=== PATIENT | female | born 1945 | race African-American/Black ===

== ENCOUNTER 2021-09-28 01:38 | Emergency (ER) | payer OTHER, MEDICAID ==
[~2021-09-28] VITALS: Ht 157.5 cm; Wt 46.0 kg
[~2021-09-28 01:38] MED LIST: HYDR-4001 MT
[2021-09-28] MEDS ORDERED: HYDROCODONE/ACETAMINOPHEN 5/325MG TABLET PO STA (02:10)
[2021-09-28 03:08] VITALS: BP 138/51
[2021-09-28 03:11] LABS: HEMOGLOBIN. 8.6 g/dL (12.0-16.0); MEAN CORPUSCULAR HEMOGLOBIN 27.2 pg (28.0-32.0); MEAN CORPUSCULAR VOLUME 82.6 fL (81.0-99.0); MEAN PLATELET VOLUME 10.7 fl (7.4-10.4); PLATELET 104 x1000/uL (130-400); RED BLOOD CELL COUNT 3.15 mill/uL (4.2-5.4); RED CELL DISTRIBUTION WIDTH 15.3 % (11.6-14.6)
[2021-09-28 03:19] LABS: INR 1.2; PROTHROMBIN TIME 12.4 sec (9.6-11.0)
[2021-09-28 04:21] LABS: CHLORIDE 113 mEq/L (98-107)
[2021-09-28] MEDS ORDERED: FUROSEMIDE 100MG/10ML VIAL IV NR (04:44)
[2021-09-28] MEDS ORDERED: SODIUM BICARBONATE 8.4% 1 MEQ/ML 50ML SYR IV NR (04:45)
[2021-09-28] MEDS ORDERED: DEXTROSE 50% WATER 50ML SYRINGE IV NR (04:45)
[2021-09-28] MEDS ORDERED: ALBUTEROL (0.083%) 2.5MG/3ML NEB HHN NR (04:45)
[2021-09-28] MEDS ORDERED: INSULIN REGULAR (HUMULIN R) 300UNITS/3ML VIAL IV NR (04:45)
[2021-09-28] MEDS ORDERED: CALCIUM CHLORIDE 1GM/10ML SYR IV NR (04:45)
[2021-09-28 05:29] LABS: PLATELET ESTIMATE DECREASED
== END 2021-09-28 07:24 | disposition left against medical advice (07) ==
LOC: ER 01:50 → CANBEDREQ 08:08
DX: R10.9 Unspecified abdominal pain (principal); R18.8 Other ascites; E87.5 Hyperkalemia; K72.10 Chronic hepatic failure without coma; F41.9 Anxiety disorder, unspecified; I10 Essential (primary) hypertension; I25.2 Old myocardial infarction
CPT/HCPCS: 36415; 71045; 80053; 84484; 85025; 99284

== ENCOUNTER 2023-11-26 08:58 | Inpatient (IN) | payer BC, MEDICAID, MEDICARE ==
[~2023-11-26] VITALS: Ht 165.1 cm; Wt 72.6 kg
[2023-11-26] VITALS (13 sets, daily range): BP systolic 138–174; BP diastolic 71–89; PULSE 74–99; RESP 16–18; TEMP 35.72508–36.6404; O2SAT 99–100
[2023-11-26 09:58] LABS: BASOPHILS % 1.2 % (0.0-2.0); DIFFERENTIAL COMMENT 0; EOSINOPHILS % 2.8 % (0.0-5.0); HEMATOCRIT. 37.3 % (36.0-48.0); HEMOGLOBIN. 11.5 g/dL (12.0-16.0); LYMPHOCYTES % 8.2 % (20.0-50.0); MEAN CORPUSCULAR HEMOGLOBIN 25.4 pg (28.0-32.0); MEAN CORPUSCULAR HGB CONC 30.7 g/dL (31.0-37.0); MEAN CORPUSCULAR VOLUME 82.6 fL (81.0-99.0); MEAN PLATELET VOLUME 10.2 fl (7.4-10.4); MONOCYTES % 6.8 % (2.0-8.0); PLATELET 86 x1000/uL (130-400); RED BLOOD CELL COUNT 4.52 mill/uL (4.2-5.4); RED CELL DISTRIBUTION WIDTH 17.3 % (11.6-14.6); WHITE BLOOD COUNT 3.2 x1000/uL (4.5-11.0)
[2023-11-26 10:02] LABS: CHLORIDE 96 mEq/L (98-107); POTASSIUM 4.3 mEq/L (3.5-5.1); SODIUM 129 mEq/L (136-145)
[2023-11-26 10:03] LABS: CALCIUM 7.3 mg/dL (8.7-10.4); CARBON DIOXIDE 24 mEq/L (21-32)
[2023-11-26 10:08] LABS: GLUCOSE 106 mg/dL (70-105); UREA NITROGEN BLOOD 30 mg/dL (9-23)
[2023-11-26 10:11] LABS: CREATININE 6.3 mg/dL (0.6-1.0); TROPONIN I HIGH SENSITIVITY 56 ng/L (3.0-34)
[2023-11-26] MEDS ORDERED: LIDOCAINE HCL 1% 10 MG/ML 10ML VIAL ONE (10:26)
[2023-11-26 14:21] LABS: HEPATITIS B SURFACE ANTIGEN NEGATIVE (Negative)
[2023-11-26 14:42] LABS: HEPATITIS A AB IGM NEGATIVE (Negative); HEPATITIS B CORE AB IGM NEGATIVE (Negative)
[2023-11-26 14:43] LABS: HEPATITIS C AB REACTIVE (Pos) (Negative)
[2023-11-26] MEDS: ONDANSETRON HCL 4MG/2ML INJ IV PRN (14:57)
[2023-11-26] MEDS ORDERED: HYDROCODONE/ACETAMINOPHEN 5/325MG TABLET PO PRN (15:00)
[2023-11-26] MEDS ORDERED: ACETAMINOPHEN 325MG TABLET PO PRN (15:00)
[2023-11-26] MEDS ORDERED: MORPHINE SULFATE 2 MG/ML INJ (NOT FOR IM USE) IV PRN (15:00)
[2023-11-26] MEDS ORDERED: ENOXAPARIN 40MG/0.4ML SYR SUBCUT SCH (15:00)
[2023-11-26] MEDS ORDERED: NALOXONE HCL 0.4MG/ML VIAL IV PRN (15:00)
[2023-11-26] MEDS ORDERED: IPRATROPIUM/ALBUTEROL 0.5-3(2.5)MG/3ML NEB HHN PRN (15:00)
[2023-11-26 15:10] LABS: TROPONIN I HIGH SENSITIVITY 271 ng/L (3.0-34)
[2023-11-26] MEDS: CLOPIDOGREL 75MG TABLET PO SCH (16:30)
[2023-11-26] MEDS ORDERED: ASPIRIN 81MG TABLET PO SCH (16:30)
[2023-11-26 16:47] LABS: CREATINE KINASE MB FRACTION 4.2 ng/mL (0.5-3.6)
[2023-11-26] MEDS: ENOXAPARIN 80MG/0.8ML SYR SUBCUT SCH (17:00)
[2023-11-26] MEDS ORDERED: GABA-529 PO (18:23)
[2023-11-26] MEDS ORDERED: SEVE0.8P MT (18:23)
[2023-11-26] MEDS ORDERED: VALS80TA30 MT (18:23)
[2023-11-26] MEDS ORDERED: HYDR25TA78 PO (18:23)
[2023-11-26] MEDS ORDERED: AMLO5TAB88 MT (18:23)
[2023-11-26] MEDS ORDERED: METO25TA6 MT (18:23)
[2023-11-26] MEDS ORDERED: ATORVASTATIN CALCIUM 40MG TABLET PO SCH (21:00)
[2023-11-30 04:08] LABS: HBSAG SCREEN Negative (Negative)
== END 2023-11-26 19:32 | disposition left against medical advice (07) | DRG 280 ==
LOC: ER 09:07 → 8WST 10:19 → EDBEDREQ 10:32 → EDBEDREQTM 10:32
PROVIDERS: ADMIT Internal Medicine; ATTEND Internal Medicine
PROC: 5A1D70Z Performance of Urinary Filtration, Intermittent, Less than 6 Hours Per Day (ICD-10-PCS; principal; 2023-11-26)
PROC: 05HY33Z Insertion of Infusion Device into Upper Vein, Percutaneous Approach (ICD-10-PCS; 2023-11-26)
DX: I21.4 Non-ST elevation (NSTEMI) myocardial infarction (principal); I50.33 Acute on chronic diastolic (congestive) heart failure; N18.6 End stage renal disease; I13.2 Hypertensive heart and chronic kidney disease with heart failure and with stage 5 chronic kidney disease, or end stage renal disease; D61.818 Other pancytopenia; E87.1 Hypo-osmolality and hyponatremia; R18.8 Other ascites; Z53.21 Procedure and treatment not carried out due to patient leaving prior to being seen by health care provider; F41.9 Anxiety disorder, unspecified; I34.0 Nonrheumatic mitral (valve) insufficiency; K74.60 Unspecified cirrhosis of liver; I25.2 Old myocardial infarction; Z88.6 Allergy status to analgesic agent; Z99.2 Dependence on renal dialysis; Z88.8 Allergy status to other drugs, medicaments and biological substances
CPT/HCPCS: 36415; 36573; 71045; 80048; 82550; 82553; 84484; 85025; 86705; 86709; 87340; 90935; 93005; 99291; C1725; J1650; J2405; J3490

== ENCOUNTER 2024-03-01 03:53 | Emergency (ER) | payer BC, MEDICAID ==
[~2024-03-01] VITALS: Ht 165.1 cm; Wt 60.0 kg
[~2024-03-01 03:53] MED LIST changes: +AMLO5TAB88 MT; +GABA-529 PO; +HYDR25TA78 PO; +METO25TA6 MT; +SEVE0.8P MT; +VALS80TA30 MT
[2024-03-01 03:56] VITALS: O2SAT 100
[2024-03-01 06:33] LABS: EOSINOPHILS % 2.6 % (0.0-5.0); HEMATOCRIT. 25.7 % (36.0-48.0); HEMOGLOBIN. 8.4 g/dL (12.0-16.0); LYMPHOCYTES % 10.7 % (20.0-50.0); MEAN CORPUSCULAR HEMOGLOBIN 27.5 pg (28.0-32.0); MEAN CORPUSCULAR HGB CONC 32.7 g/dL (31.0-37.0); MEAN PLATELET VOLUME 9.6 fl (7.4-10.4); MONOCYTES % 9.2 % (2.0-8.0); NEUTROPHILS % 76.5 % (40.0-76.0); PLATELET 106 x1000/uL (130-400); RED BLOOD CELL COUNT 3.06 mill/uL (4.2-5.4); RED CELL DISTRIBUTION WIDTH 17.1 % (11.6-14.6); WHITE BLOOD COUNT 2.9 x1000/uL (4.5-11.0)
[2024-03-01 06:43] LABS: CARBON DIOXIDE 25 mEq/L (21-32); CHLORIDE 100 mEq/L (98-107); SODIUM 135 mEq/L (136-145)
[2024-03-01 06:44] LABS: CALCIUM 7.9 mg/dL (8.7-10.4)
[2024-03-01 06:48] LABS: CREATININE 4.6 mg/dL (0.6-1.0)
[2024-03-01 06:49] LABS: GLUCOSE 89 mg/dL (70-105); UREA NITROGEN BLOOD 21 mg/dL (9-23)
[2024-03-01 07:11] LABS: INR 1.1; PARTIAL THROMBOPLASTIN TIME 30.6 sec (23.4-31.0); PROTHROMBIN TIME 12.1 sec (9.6-11.0)
[2024-03-01 07:27] LABS: ETHANOL BLOOD < 10 mg/dL (<10)
[2024-03-01 07:29] LABS: TROPONIN I HIGH SENSITIVITY 91 ng/L (3.0-34)
[2024-03-01 09:07] VITALS: BP 134/68; PULSE 83; RESP 16; TEMP 37.05852; O2SAT 100
== END 2024-03-01 11:24 | disposition left against medical advice (07) ==
LOC: ER 03:53 → EDBEDREQ 06:33 → ER 11:24
DX: R07.9 Chest pain, unspecified (principal); N18.6 End stage renal disease; Z99.2 Dependence on renal dialysis; K74.60 Unspecified cirrhosis of liver; Z79.899 Other long term (current) drug therapy; Z88.8 Allergy status to other drugs, medicaments and biological substances; Z88.6 Allergy status to analgesic agent; Z88.0 Allergy status to penicillin
CPT/HCPCS: 36415; 71045; 80048; 80320; 83880; 84484; 85025; 93005; 99285; G0480